=== PATIENT | female | born 1985 | race Caucasian/White ===

== ENCOUNTER 2017-11-01 09:39 | Inpatient (IN) | payer MEDICAID ==
[~2017-11-01] VITALS: Ht 170.2 cm; Wt 76.0 kg
[~2017-11-01 09:39] MED LIST: ALBU8.5H8 IH; CEPH500C5 PO
[2017-11-01 11:37] LABS: BASOPHILS # (AUTO) 0.1 X10'3 (0-0.2); BASOPHILS % (AUTO) 0.8 % (0-1); EOSINOPHILS % (AUTO) 0.1 % (0-6); HEMATOCRIT 34.3 % (35.0-45.0); HEMOGLOBIN 11.9 g/dl (12.0-16.0); LYMPHOCYTES % (AUTO) 19.2 % (21-51); MEAN CORPUSCULAR HEMOGLOBIN 28.4 PG (27.0-31.0); MEAN CORPUSCULAR HGB CONC 34.7 % (33.0-36.5); MEAN CORPUSCULAR VOLUME 81.8 FL (78-98); MEAN PLATELET VOLUME 7.2 FL (7.4-10.4); MONOCYTES # (AUTO) 0.6 X10'3 (0-0.9); MONOCYTES % (AUTO) 5.8 % (2-12); NEUTROPHILS # (AUTO) 7.7 X10'3 (1.8-7.7); NEUTROPHILS % (AUTO) 74.1 % (42-75); PLATELET COUNT 348 X10'3 (140-440); RED BLOOD COUNT 4.19 X10'6 (4.20-5.60); RED CELL DISTRIBUTION WIDTH 14.1 % (11.5-14.5); WHITE BLOOD COUNT 10.4 X10'3 (4.5-11.0)
[2017-11-01] MEDS ORDERED: acetaminophen 325mg tablet PO PRN ×2 (11:45)
[2017-11-01] MEDS ORDERED: albuterol 2.5 MG/3 ML nebule NEB PRN (11:45)
[2017-11-01] MEDS ORDERED: potassium Cl 40MEQ/NS 500ml 500 ML IV PRN ×2 (11:45)
[2017-11-01] MEDS ORDERED: magnesium hydroxide 30ml (MOM) UD suspension PO PRN (11:45)
[2017-11-01] MEDS ORDERED: potassium Cl 20 mEq SR tablet PO PRN ×2 (11:45)
[2017-11-01] MEDS ORDERED: metoclopramide 5 mg/ml inj IV PRN (11:45)
[2017-11-01] MEDS ORDERED: magnesium 4gm in 100ml NS 100 ML IV PRN (11:45)
[2017-11-01] MEDS ORDERED: magnesium Cl slow-release 64mg tablet PO PRN (11:45)
[2017-11-01] MEDS ORDERED: ondansetron/PF 4mg/2ml inj IV PRN (11:45)
[2017-11-01] MEDS ORDERED: magnesium 2GM in 50ml NS 50 ML IV PRN (11:45)
[2017-11-01] MEDS ORDERED: mag hydrox/Alum hydrox/simeth 30ml oral suspension PO PRN (11:45)
[2017-11-01 11:53] LABS: ALANINE AMINOTRANSFERASE 13 U/L (12-78); ALBUMIN 3.2 G/DL (3.4-5.0); ALBUMIN/GLOBULIN RATIO 0.6 (1.1-1.5); ALKALINE PHOSPHATASE 74 IU/L (46-116); ANION GAP 10 (8-16); ASPARTATE AMINO TRANSFERASE 14 U/L (10-37); BILIRUBIN,TOTAL 0.4 MG/DL (0.1-1.0); BLOOD UREA NITROGEN 6 MG/DL (7-18); BUN/CREATININE RATIO 8.6 (6.6-38.0); CALCIUM 9.2 MG/DL (8.5-10.1); CHLORIDE 104 MMOL/L (99-107); GLUCOSE 99 MG/DL (70-104); POTASSIUM 3.6 MMOL/L (3.5-5.1); SODIUM 140 MMOL/L (135-145); TOTAL CARBON DIOXIDE 26.5 MMOL/L (24-32); VANCOMYCIN,RANDOM 12.5 UG/ML; eGFR > 90 ML/MIN
[2017-11-01 11:59] LABS: CLARITY,URINE CLEAR (Clear); COLOR,URINE STRAW (Yellow); GLUCOSE, URINE NEGATIVE (Neg); KETONES,URINE NEGATIVE (Neg); LEUKOCYTE ESTERASE ,URINE NEGATIVE (Neg); NITRITES, URINE NEGATIVE (Neg); OCCULT BLOOD,URINE NEGATIVE (Neg); PH,URINE 6.5 (4.8-8.0); PROTEIN,URINE NEGATIVE (Neg); UROBILINOGEN,URINE 0.2 E.U/dL (0.2-1.0)
[2017-11-01 12:02] LABS: UA COLLECTION TYPE CLN CATCH MIDSTREAM
[2017-11-01 12:12] LABS: URINE AMPHETAMINE SCREEN POSITIVE (Neg); URINE BARBITUATE SCREEN NEGATIVE (Neg); URINE BENZODIAZEPINES SCREEN NEGATIVE (Neg); URINE CANNABINOID SCREEN NEGATIVE (Neg); URINE COCAINE SCREEN NEGATIVE (Neg); URINE METHADONE SCREEN POSITIVE (Neg); URINE OPIATE SCREEN POSITIVE (Neg); URINE PHENCYCLIDINE SCREEN NEGATIVE (Neg)
[2017-11-01] MEDS: LORazepam 0.5 MG tablet PO PRN ×2 (13:30→21:10)
[2017-11-01] MEDS ORDERED: HYDROcodone/acetaminophen 5mg/325mg tablet PO PRN (17:25)
[2017-11-01] MEDS ORDERED: vancomycin/NS 1 GM ADD-VANTAGE 250 ML IV SCH (20:00)
[2017-11-01 20:15] VITALS: BP 114/75
[2017-11-02] MEDS ORDERED: K and/or MAG REPLACEMENT MC SCH (08:00)
[2017-11-02] MEDS ORDERED: VANCOMYCIN LEVEL IV NR (19:30)
== END 2017-11-02 01:30 | disposition left against medical advice (07) | DRG 720 ==
LOC: ER 09:39 → ED HOLD 11:42 → MED 3N 20:00
PROVIDERS: ADMIT Internal Medicine; ATTEND Internal Medicine
DX: A41.02 Sepsis due to Methicillin resistant Staphylococcus aureus (principal); I26.90 Septic pulmonary embolism without acute cor pulmonale; Z53.21 Procedure and treatment not carried out due to patient leaving prior to being seen by health care provider; F19.10 Other psychoactive substance abuse, uncomplicated; Z91.19 Patient's noncompliance with other medical treatment and regimen; Z88.2 Allergy status to sulfonamides; Z79.899 Other long term (current) drug therapy
CPT/HCPCS: 36415; 71045; 80053; 80202; 80305; 81003; 85025; 85651; 99285; J3370; J7030

== ENCOUNTER 2018-08-17 18:05 | Emergency (ER) | payer MEDICAID, OTHER ==
[~2018-08-17] VITALS: Ht 167.6 cm; Wt 81.0 kg
[~2018-08-17 18:05] MED LIST changes: -CEPH500C5 PO
[2018-08-17] MEDS ORDERED: LORazepam 2 mg/ml vial IM ONE (18:40)
[2018-08-17] MEDS ORDERED: busPIRone 15mg tablet PO STA (19:15)
[2018-08-17 19:43] VITALS: BP 142/88
== END 2018-08-17 19:45 | disposition home or self-care (01) ==
LOC: ER 18:06
DX: F41.9 Anxiety disorder, unspecified (principal); R06.82 Tachypnea, not elsewhere classified; R00.2 Palpitations; R06.00 Dyspnea, unspecified; F15.90 Other stimulant use, unspecified, uncomplicated; Z88.2 Allergy status to sulfonamides
CPT/HCPCS: 93005; 96372; 99284; J2060

== ENCOUNTER 2019-08-06 12:54 | Outpatient (CLI) | payer MEDICAID ==
[2019-08-06 14:34] LABS: HIV ANTIBODY 1&2 RAPID NON-REACTIVE (Neg)
[2019-08-08 09:43] LABS: RPR Non Reactive (Non Reactive)
== END 2019-08-06 23:59 | disposition home or self-care (01) ==
LOC: LAB 12:54
PROVIDERS: ATTEND Registered Nurse
DX: Z30.49 Encounter for surveillance of other contraceptives (principal); F17.200 Nicotine dependence, unspecified, uncomplicated
CPT/HCPCS: 36415; 86592; 86703

== ENCOUNTER 2022-12-13 09:29 | Emergency (ER) | payer MEDICAID ==
[~2022-12-13] VITALS: Ht 170.2 cm; Wt 95.5 kg
[~2022-12-13 09:29] MED LIST changes: +ALBU8.5H17 IH; -ALBU8.5H8 IH
[2022-12-13 09:36] VITALS: BP 126/76
[2022-12-13 10:34] LABS: BASOPHILS # (AUTO) 0.1 X10'3 (0-0.2); BASOPHILS % (AUTO) 1.1 % (0-1); EOSINOPHILS # (AUTO) 0.1 X10'3 (0-0.9); EOSINOPHILS % (AUTO) 1.2 % (0-6); HEMATOCRIT 38.9 % (35.0-45.0); HEMOGLOBIN 13.1 g/dl (12.0-16.0); LYMPHOCYTES # (AUTO) 2.3 X10'3 (1.1-4.8); LYMPHOCYTES % (AUTO) 28.7 % (21-51); MEAN CORPUSCULAR HEMOGLOBIN 29.2 PG (27.0-31.0); MEAN CORPUSCULAR HGB CONC 33.7 g/dL (33.0-36.5); MEAN CORPUSCULAR VOLUME 86.6 FL (78-98); MEAN PLATELET VOLUME 7.9 FL (7.4-10.4); MONOCYTES # (AUTO) 0.7 X10'3 (0-0.9); MONOCYTES % (AUTO) 9.1 % (2-12); NEUTROPHILS # (AUTO) 4.9 X10'3 (1.8-7.7); NEUTROPHILS % (AUTO) 59.9 % (42-75); PLATELET COUNT 258 X10'3 (140-440); RED BLOOD COUNT 4.49 X10'6 (4.20-5.60); RED CELL DISTRIBUTION WIDTH 12.9 % (11.5-14.5); WHITE BLOOD COUNT 8.1 X10'3 (4.5-11.0)
[2022-12-13 10:48] LABS: ALANINE AMINOTRANSFERASE 11 U/L (12-78); ALBUMIN 3.3 G/DL (3.4-5.0); ALBUMIN/GLOBULIN RATIO 0.7 (1.1-1.5); ALKALINE PHOSPHATASE 118 IU/L (46-116); ANION GAP 2 (8-16); ASPARTATE AMINO TRANSFERASE 12 U/L (10-37); BILIRUBIN,TOTAL 0.3 MG/DL (0.1-1.0); BLOOD UREA NITROGEN 13 MG/DL (7-18); BUN/CREATININE RATIO 18.8 (6.6-38.0); CALCIUM 8.9 MG/DL (8.5-10.1); CHLORIDE 103 MMOL/L (99-107); CREATININE 0.69 MG/DL (0.40-0.90); GLUCOSE 124 MG/DL (70-104); POTASSIUM 3.7 MMOL/L (3.5-5.1); SODIUM 138 MMOL/L (135-145); TOTAL CARBON DIOXIDE 32.9 MMOL/L (24-32); TOTAL PROTEIN 7.9 G/DL (6.4-8.2); eGFR > 90 ML/MIN
[2022-12-13] MEDS ORDERED: CefTRIAXone 1000mg IM Kit (w/lidocaine diluent) IM STA (12:43)
[2022-12-13] MEDS ORDERED: metroNIDAZOLE 500mg tablet PO ONE (12:45)
[2022-12-13] MEDS ORDERED: azithromycin 250mg tablet PO ONE (12:45)
[2022-12-13] MEDS ORDERED: METR-159 PO (13:07)
== END 2022-12-13 13:50 | disposition home or self-care (01) ==
LOC: ER 09:29
DX: M79.605 Pain in left leg (principal); R22.42 Localized swelling, mass and lump, left lower limb; F41.9 Anxiety disorder, unspecified; F15.90 Other stimulant use, unspecified, uncomplicated; Z88.2 Allergy status to sulfonamides; Z88.8 Allergy status to other drugs, medicaments and biological substances; Z79.899 Other long term (current) drug therapy
CPT/HCPCS: 36415; 80053; 85025; 93971; 99284

== ENCOUNTER 2022-12-28 00:39 | Emergency (ER) | payer MEDICAID ==
[~2022-12-28] VITALS: Ht 170.2 cm; Wt 95.4 kg
[~2022-12-28 00:39] MED LIST changes: +METR-159 PO
[2022-12-28 00:44] VITALS: BP 145/80
[2022-12-28] MEDS ORDERED: ketorolac trometh inj. 60 MG/2 ML VIAL IM ONE (01:10)
--- NOTE | 2022-12-28 01:22 | NUR ---
PT TO XRAY WITH TECH
[2022-12-28] MEDS ORDERED: TRAM1TAB7 PO (01:40)
== END 2022-12-28 01:59 | disposition home or self-care (01) ==
LOC: ER 00:40
DX: M79.605 Pain in left leg (principal); F17.200 Nicotine dependence, unspecified, uncomplicated; F41.9 Anxiety disorder, unspecified; F15.90 Other stimulant use, unspecified, uncomplicated; Z79.899 Other long term (current) drug therapy; W18.39XA Other fall on same level, initial encounter; Y93.89 Activity, other specified; Y92.89 Other specified places as the place of occurrence of the external cause; Y99.8 Other external cause status
CPT/HCPCS: 72170; 96372; 99283; J1885

== ENCOUNTER 2022-12-28 12:45 | Emergency (ER) | payer MEDICAID ==
[~2022-12-28] VITALS: Ht 170.2 cm; Wt 95.5 kg
[~2022-12-28 12:45] MED LIST changes: +TRAM1TAB7 PO
[2022-12-28 12:55] VITALS: BP 120/76
== END 2022-12-28 15:18 | disposition left against medical advice (07) ==
LOC: ER 12:46
DX: M79.606 Pain in leg, unspecified (principal); Z53.21 Procedure and treatment not carried out due to patient leaving prior to being seen by health care provider
CPT/HCPCS: 99281

== ENCOUNTER 2024-02-25 16:04 | Emergency (ER) | payer MEDICAID ==
[~2024-02-25] VITALS: Ht 167.6 cm; Wt 110.5 kg
[~2024-02-25 16:04] MED LIST changes: -METR-159 PO; -TRAM1TAB7 PO
[2024-02-25 17:06] VITALS: BP 118/58; PULSE 102; RESP 18; O2SAT 97
[2024-02-25] MEDS ORDERED: CEPH500C82 PO (17:13)
[2024-02-25 17:21] VITALS: TEMP 97.8
== END 2024-02-25 17:22 | disposition home or self-care (01) ==
LOC: ER 16:05
DX: L03.116 Cellulitis of left lower limb (principal); F15.90 Other stimulant use, unspecified, uncomplicated; Z88.2 Allergy status to sulfonamides; Z79.2 Long term (current) use of antibiotics
CPT/HCPCS: 99283